=== PATIENT | male | born 1965 | race Caucasian/White ===

== ENCOUNTER → 2018-02-27 | Outpatient (CLI) | payer OTHER ==
--- NOTE | 2018-02-27 16:35 | EXE ---
[place] [address] STRESS ECHOCARDIOGRAM Name: MIKEALEXANDER OKEEFE PAULO Room: [facility]#: [id number] Admission: 02/27/18 Attend Phys: Ivan Rutherford, Discharge: Date of : 65 Date of Service: 02/27/18 1635 Report #: [id number] THIS REPORT FOR: //name// APPROVED REPORT Study performed: 02/27/2018 13:20:12 Exam: Stress Echocardiogram Indication: Chest pain Patient Location: Out-Patient Stress Nurse: Georgia Witt RN Supervising Physician: Rene Kemp MD Status: routine Ht: 5 ft 11 in HR: 57 bpm BP: 165/91 mmHg Rhythm: NSR Medical History Cardiac Risk Factors: Age, Tobacco History (Former), HTN, FHX of CAD Procedure The patient underwent an Exercise Stress Test using the Gary Protocol. Blood pressure, heart rate, and EKG were monitored. An Echocardiogram was performed by pyrotechnician in four stages in quad fashion. At peak stress, four selected images were obtained and placed side by side with resting images for comparison. Stress Test Details Stress Test: Exercise stress testing was performed using a Gary protocol. HR Resting HR: 57 bpm Max Heart Rate (APMHR): 167 bpm Max HR Achieved: 150 bpm Target HR (85% APMHR): 141 bpm % of APMHR: 89 Recovery HR: 81 bpm HR response to stress: Normal HR response to stress BP Resting BP: 165/91 mmHg Max BP: 263/50 mmHg Recovery BP: 169/104 [place] [address] STRESS ECHOCARDIOGRAM Name: ALEXANDER POSADAS Room: [facility]#: [id number] Admission: 02/27/18 Attend Phys: Ivan Rutherford, Discharge: Date of : 65 Date of Service: 02/27/18 1635 Report #: [id number] Resting ECG: Sinus Rhythm, normal EKG Stress ECG: Sinus Tachycardia ST Change: Downsloping ST depression Maximum ST Deviation: 1 mm Arrhythmia: None Recovery ECG: Sinus Rhythm Recovery ST Change: Downsloping ST depression Recovery ST Deviation: 1 mm Recovery Arrhythmia: None Clinical Reason for Termination: High blood pressure Exercise duration: 7 min 23 sec Highest Stage Achieved: Stage 3: 3.4 mph at 14% grade. Exercise capacity: 9.15 METs The patient tolerated standard Gary protocol exercise without significant cardiac symptoms. The patient did have a hypertensive response to exercise. Stress ECG Conclusion The baseline 12-lead EKG shows sinus rhythm without significant ST or T wave abnormality. EKGs obtained during stress and post stress show ST segment depression of approximately 1 mm that is downsloping in the inferolateral leads that persisted for 12 minutes into recovery. Pre-Stress Echo The resting Echocardiogram showed normal left ventricular contractility with an estimated Ejection Fraction of about 60-65%. Post-Stress Echo The stress Echocardiogram showed normal left ventricular contractility with an estimated Ejection Fraction of about >70%. Clinical No clinical or ECG evidence for ischemia. Conclusion Clinical Response: Non-ischemic Exercise Capacity: Below Average Stress ECG Response: Equivocal Stress Echo Images: Non-ischemic The stress echocardiographic images showed normal LV systolic function at rest with no wall motion abnormality. There were no stress-induced wall motion abnormalities noted on [place] [address] STRESS ECHOCARDIOGRAM Name: ALEXANDER POSADAS Room: [facility]#: [id number] Admission: 02/27/18 Attend Phys: Ivan Rutherford, Discharge: Date of : 65 Date of Service: 02/27/181634 Report #: [id number] Abnormal EKG findings are likely due to hypertensive response to exercise. This is not a high risk study. Other Information Study Quality: Good <Conclusion> The stress echocardiographic images showed normal LV systolic function at rest with no wall motion abnormality. There were no stress-induced wall motion abnormalities noted on the stress echocardiogram. Abnormal EKG findings are likely due to hypertensive response to exercise. This is not a high risk study. <ELECTRONICALLY SIGNED> By: Rene Kemp MD, FACC 02/27/18 2165 1635 34 Rene Kemp MD, [facility] /INF
--- NOTE | 2018-03-05 22:45 | SLEEP ---
[address] [address] SLEEP STUDY REPORT Name: ALEXANDER POSADAS [id number] Admission: 02/27/18 Attend Phys: Ivan Rutherford MD Discharge: Date of : 65 Report #: [id number] THIS REPORT FOR: //name// CC: Fanny Rutherford This study has been reviewed in its entirety by a board certified sleep specialist DATE OF SERVICE: 02/27/2018 HOME SLEEP STUDY The patient is a 53-year-old who weighs 229 pounds with a BMI of 31.9. The patient had moderate to severe subjective hypersomnia with an [place] score of 17. Home sleep study was performed by [facility]. Total recording time was 432 minutes. During the night study, the patient had only 8 obstructive apneas, no central or mixed apneas and 30 hypopneas. The patient's apnea hypopnea index was 5.3 per hour and supine index was also 5.3 per hour. Review of nocturnal oximetry study revealed an average oxygen saturation of 94% with a lowest of 80%. Five minutes were spent in oxygen saturation of less than 90%. EKG monitoring revealed mean heart rate of 59 beats per minute with a maximum of 90 beats per minute. IMPRESSION: 1. Mild sleep apnea-hypopnea syndrome at an AHI of 5.3 per hour. 2. Mild nocturnal hypoxia secondary to obstructive sleep apnea. RECOMMENDATIONS: 1. The patient is clinically symptomatic with moderate to severe subjective hypersomnia. I would recommend treating the patient's mild sleep apnea with either an oral appliance as recommended by the dentist versus a trial of CPAP titration. 2. Weight loss is strongly advised. 3. 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 4. Cautioned regarding driving until symptoms of sleep apnea resolve with the above recommendations. <ELECTRONICALLY SIGNED> By: Jorge Love MD 03/05/18 2245 1536 [id number] Love MD /nt
== END ==
LOC: M.CRD 02-24 13:00
DX: G47.30 Sleep apnea, unspecified (principal); R07.89 Other chest pain; R06.83 Snoring; R06.01 Orthopnea; I10 Essential (primary) hypertension; Z68.30 Body mass index [BMI] 30.0-30.9, adult

== ENCOUNTER → 2018-07-07 | Outpatient (CLI) | payer OTHER ==
[~2018-07-07] VITALS: Ht 180.3 cm; Wt 104.3 kg
[~2018-07-07] MED LIST: ASPIR 8181 MG PO; HYDROCHLOROTH12.5 M1 PO; HYZAAR 50-12.51 EACH PO; NITROGLYCERIN0.4 MG SUBLING; WELLBUTRIN XL150 MG PO
[2018-07-07 08:32] VITALS: BP 150/83
[2018-07-07 08:57] LABS: HEMATOCRIT 43.5 % (42.0-52.0); HEMOGLOBIN 15.5 gm/dL (14.0-18.0); MCH 32.8 pg (26.0-34.0); MCHC 35.8 g/dL (28.0-37.0); MCV 91.7 fL (80.0-100.0); MPV 7.6 fl. (7.2-11.1); RBC 4.74 mil/uL (4.50-6.00); RDW-CV 12.9 % (10.5-14.5)
[2018-07-07 09:07] LABS: APTT 25.8 Seconds (25.0-31.3); INR 1.1; PROTIME 10.8 Seconds (9.20-11.50)
[2018-07-07 09:12] LABS: ANION GAP 9 mmol/L (7-16); BUN 19 mg/dL (7-18); CALCIUM 8.7 mg/dL (8.5-10.1); CHLORIDE 105 mmol/L (98-107); CO2 28 mmol/L (21-32); CREATININE 1.2 mg/dL (0.6-1.3); GLUCOSE 106 mg/dL (70-99); POTASSIUM 3.9 mmol/L (3.5-5.1); SODIUM 142 mmol/L (136-145)
[2018-07-07 09:16] LABS: ALKALINE PHOSPHATASE 48 U/L (46-116); CHOLESTEROL 173 mg/dL (<200); HDL CHOLESTEROL 32 mg/dL (>40); LDL CHOLESTEROL 122 mg/dL (<100); SGOT 22 U/L (15-37); SGPT 37 U/L (30-65); TC:HDL 5.4 Ratio (Not establshd); TOTAL BILIRUBIN 0.6 mg/dL (<0.1-1.0); TOTAL PROTEIN 7.5 g/dL (6.4-8.2); TRIGLYCERIDE 95 mg/dL (<150); VLDL 19 mg/dL (<40)
[2018-07-07 09:17] LABS: SERUM ASSESSMENT Clear
[2018-07-07 10:21] VITALS: BP 136/81
[2018-07-07 10:44] VITALS: BP 144/67
[2018-07-07 11:33] VITALS: BP 132/74
[2018-07-07 14:15] VITALS: BP 144/76
--- NOTE | 2018-07-07 14:22 | EKG ---
[place] [address] ELECTROCARDIOGRAM REPORT Name: ALEXANDER POSADAS Room: [facility]#: [id number] Admission: 07/07/18 Attend Phys: Royal Bennett MD, Discharge: Date of : 65 Report #: [id number] THIS REPORT FOR: //name// [facility] Test Date: 2018-07-07 Test Time: 08:56:22 Pat Name: ALEXANDER POSADAS Department: Room: Gender: M Statistical Technician: CEDRICK : 1965 Requested By: Royal Bennett Order Number: [id number] Reading MD: Royal Bennett Measurements Intervals [place] Rate: 60 P: -36 UT: 159 QRS: 12 QRSD: 87 T: 155 QT: 429 QTc: 429 Interpretive Statements Sinus rhythm Repol abnrm suggests ischemia or LV strain, lateral leads Compared to ECG 12/17/2013 07:36:24 Early repolarization now present Sinus bradycardia no longer present ST (T wave) deviation no longer present Possible ischemia still present Electronically Signed On 07-07-2018 14:22:00 LITERACY TEACHER by Royal Bennett [email or web address] <ELECTRONICALLY SIGNED> By: Royal Bennett MD, FACC 07/07/18 1422 [id number] Royal Bennett MD, [facility] /EPI
--- NOTE | 2018-07-07 15:04 | CARD ---
[address] [address] CARDIAC CATH REPORT Name: ALEXANDER POSADAS Room: [facility] CHRISSY Menjivar#: [id number] Admission: 07/07/18 Attend Phys: Royal Bennett MD, Discharge: Date of : 65 Report #: [id number] THIS REPORT FOR: //name// APPROVED REPORT Study performed: 07/07/2018 08:35:37 Patient Details The patient is a 53 year-old male Event Personnel Royal Bennett Drop [place]ge Hand, Randall Gonzalez Kucera, Brad Monitor, [place]mal[place], Brittany RN (R) spinner hand Performed Left Heart Cath w/or w/o Coronaries [id number] LHCHemostasis w/ Mynx , Left Heart Catheterization Indication Positive stress test Risk Factors Family History, Hypertension Admission/Lab Medications/Medications given during procedure Fentanyl IV 50 mcg, Midazolam (Versed) IV 2 mg, Lidocaine Subcut 20 ml Procedure Narrative The patient was brought electively to the Cardiac Catheterization Laboratory and was prepped and draped in a sterile manner. The right femoral was infiltrated with 2% Lidocaine subcutaneous anesthesia. A [place] 6 FR sheath was inserted into the right femoral artery. Coronary angiography was performed using coronary diagnostic catheters. The right coronary system was accessed and visualized with a JR4 catheter. The left coronary system was accessed and visualized with a JL4 catheter. The left ventricle was accessed and visualized with a Straing PIG catheter. Left ventricular/Aortic Valve gradient assessed via catheter pullback. Left ventriculogram was performed in [place] projection. Pre-demployment femoral angiogram was performed . Closure device was deployed with a Fr MynxGrip 6/7F. The patient tolerated the procedure well and there were no complications associated with the procedure. [place] [address] CARDIAC CATH REPORT Name: MIKEMALDONADOALEXANDER BATES Room: [facility]#: [id number] Admission: 07/07/18 Attend Phys: Royal Bennett MD, Discharge: Date of : 65 Report #: [id number] Intraoperative Conscious Sedation Fentanyl 50 mcg Fluoro Time: 2.9 minutes Dose: DAP 34031 cGycm2 56.6 mGy Contrast Type and Amount: Visipaque 180 ml Coronary Angiography The patient's coronary anatomy is right dominant. Diagnostic Cath Left Main 0 Percent narrowing LAD 30% proximal narrowing Circumflex 20% mid vessel narrowing Right Coronary Dominant vessel with 30% mid vessel narrowing Left Ventriculography The left ventricle is normal in size with normal contractility. The left ventricular ejection fraction is estimated to be 65%. Left ventricular wall motion abnormalities are not present. There is no mitral insufficiency. Hemodynamics The aortic pressure is 130/70 mmHg with a mean of 95 mmHg. The left ventricular pressure is 129/3 mmHg with a mean of mmHg. The left ventricular end diastolic pressure is 12 mmHg. There was no gradient across the aortic valve upon pullback. Conclusion #1 mild coronary artery disease characterized by the following: A 30% proximal LAD narrowing B 20% mid circumflex narrowing C dominant right coronary artery with 30% mid vessel narrowing #2 normal left ventricular systolic function, estimated ejection fraction being 65% #3 normal left-sided hemodynamics study. Recommendations [place]iac [place] [address] CARDIAC CATH REPORT Name: ALEXANDER POSADAS BATES Room: [facility]#: [id number] Admission: 07/07/18 Attend Phys: Royal Bennett MD, Discharge: Date of : 65 Report #: [id number] Diagnostic Cath Approved by: Royal Bennett MD Date/Time: 07/07/2018 15:03:56 <ELECTRONICALLY SIGNED> By: Royal Bennett MD, [facility] 07/07/18 1504 1504 [id number] Bennett MD, FACC /INF
--- NOTE | 2018-07-09 11:06 | NUR ---
Follow up phone call made, spoke with patients son, patient was at work, phone number given for patient to return call if he had any questions or concerns.
== END | disposition home or self-care (01) ==
LOC: M.CL 08:14
PROVIDERS: Internal Medicine
DX: I25.10 Atherosclerotic heart disease of native coronary artery without angina pectoris (principal); I10 Essential (primary) hypertension; Z79.899 Other long term (current) drug therapy; Z79.82 Long term (current) use of aspirin